=== PATIENT | female | born 1970 ===

== ENCOUNTER 2020-08-10 16:33 | Emergency (ER) | payer OTHER ==
[2020-08-10 17:43] VITALS: BP 141/93
[2020-08-10] MEDS ORDERED: ACETAMINOPHEN 325 MG TABLET PO ONE (18:09)
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
== END 2020-08-11 01:30 | disposition left against medical advice (07) ==
LOC: ER 16:33
DX: M54.2 Cervicalgia (principal); R51.9 Headache, unspecified; R07.89 Other chest pain; M54.5 Low back pain; V43.52XA Car driver injured in collision with other type car in traffic accident, initial encounter; Z79.899 Other long term (current) drug therapy; Z88.0 Allergy status to penicillin; Z53.20 Procedure and treatment not carried out because of patient's decision for unspecified reasons; Z20.822 Contact with and (suspected) exposure to COVID-19
CPT/HCPCS: 70450; 71250; 72110; 72125; 99281